=== PATIENT | female | born 1960 | race Caucasian/White ===

== ENCOUNTER 2018-03-25 18:37 | Emergency (ER) | payer MEDICAID ==
[~2018-03-25] VITALS: Ht 157.5 cm; Wt 65.0 kg
[2018-03-25 18:51] VITALS: BP 161/90
--- NOTE | 2018-03-25 19:59 | NUR ---
Patient/Caregiver given discharge instructions and they have confirmed that they understand the instructions. Patient ambulatory with steady gait.
== END 2018-03-25 20:00 | disposition home or self-care (01) ==
LOC: ED 19:57
DX: H10.232 Serous conjunctivitis, except viral, left eye (principal); F17.200 Nicotine dependence, unspecified, uncomplicated; I10 Essential (primary) hypertension
CPT/HCPCS: 99283

== ENCOUNTER 2019-06-16 09:57 | Emergency (ER) | payer SELFPAY ==
[~2019-06-16] VITALS: Ht 157.5 cm; Wt 70.9 kg
[2019-06-16 10:00] VITALS: BP 155/97
--- NOTE | 2019-06-16 10:14 | NUR ---
FIRST CONTACT WITH PT. PT C/O: "I HAVE SCREWS IN MY FOOT (RIGHT FOOT) THAT I SHOULD HAVE GOTTEN OUT A LONG TIME AGO AND IT IS GIVING ME METAL POISIONING, I AM STARTING TO FEEL PAIN HERE (RIGHT AND LEFT POSTERIOR HIP AND LBP)." PT DENIES URINARY SYMPTOMS. PT'S AOX4. RESPS EVEN AND UNLABORED.
[2019-06-16] MEDS ORDERED: METHOCARBAMOL 750 MG TABLET ONE (10:23)
[2019-06-16] MEDS ORDERED: KETOROLAC 30 MG/1 ML ONE (10:23)
--- NOTE | 2019-06-16 10:29 | NUR ---
PT MEDICATED PER EMAR. PT TOLERATED WELL.
[2019-06-16] MEDS ORDERED: METHOCARBAMOL 750 MG TABLET PO ONE (10:30)
[2019-06-16] MEDS ORDERED: KETOROLAC 30 MG/1 ML IM ONE (10:30)
--- NOTE | 2019-06-16 10:43 | NUR ---
Patient given discharge instructions and they have confirmed that they understand the instructions. Patient ambulatory with steady gait.
== END 2019-06-16 10:44 | disposition home or self-care (01) ==
LOC: ED 10:32
DX: S39.012A Strain of muscle, fascia and tendon of lower back, initial encounter (principal); M79.671 Pain in right foot; I10 Essential (primary) hypertension; F17.210 Nicotine dependence, cigarettes, uncomplicated; J44.9 Chronic obstructive pulmonary disease, unspecified; G89.29 Other chronic pain; X58.XXXA Exposure to other specified factors, initial encounter; Y93.89 Activity, other specified; Y92.89 Other specified places as the place of occurrence of the external cause; Y99.8 Other external cause status
CPT/HCPCS: 96372; 99283; J1885

== ENCOUNTER 2020-01-01 08:27 | Emergency (ER) | payer MEDICAID ==
[~2020-01-01] VITALS: Ht 157.5 cm; Wt 74.4 kg
--- NOTE | 2020-01-01 09:20 | NUR ---
DIRECTOR PROCESS ENGINEERING: PT TO ROOM FROM LOBBY
[2020-01-01 10:11] LABS: BASOPHILS % (AUTO) 2 % (0-1); EOSINOPHILS % (AUTO) 2 % (1-7); LYMPHOCYTES % (AUTO) 38 % (22-44); MEAN CORPUSCULAR HEMOGLOBIN 32.2 pg (27.0-34.8); MEAN CORPUSCULAR HGB CONC 34.2 g/dL (32.4-35.8); MEAN PLATELET VOLUME 9.4 fL (7.4-10.4); MONOCYTES % (AUTO) 11 % (2-9); NEUTROPHILS % (AUTO) 48 % (42-75); PLATELET COUNT 193 x10^3/uL (130-400); RED BLOOD COUNT 4.53 x10^6/uL (3.82-5.3)
[2020-01-01 10:19] LABS: MD NO
[2020-01-01 10:21] LABS: ALANINE AMINOTRANSFERASE 26 U/L (12-78); ALBUMIN 3.4 g/dL (3.4-5.0); ANION GAP 4 mmol/L (5-15); CALCIUM 9.1 mg/dL (8.5-10.1); CHLORIDE 105 mmol/L (98-107)
[2020-01-01 10:23] LABS: ALKALINE PHOSPHATASE 78 U/L (45-117); BILIRUBIN,TOTAL 0.8 mg/dL (0.2-1.0); TOTAL PROTEIN 7.8 g/dL (6.4-8.2)
[2020-01-01 12:41] VITALS: BP 144/82
[2020-01-01 12:41] LABS: MICROSCOPIC INDICATED
== END 2020-01-01 13:34 | disposition home or self-care (01) ==
LOC: ED 09:26
DX: K85.20 Alcohol induced acute pancreatitis without necrosis or infection (principal); N30.00 Acute cystitis without hematuria; R10.32 Left lower quadrant pain; I10 Essential (primary) hypertension; Z59.0 Homelessness
CPT/HCPCS: 36415; 80053; 81001; 83690; 85025; 87077; 87086; 87186; 99283